=== PATIENT | female | born 1970 | race Asian ===

== ENCOUNTER → 2017-04-23 | Outpatient (CLI) | payer OTHER ==
[~2017-04-23] MED LIST: GADODIAMIDE PF 287 MG/ML 5 ML VIAL (for RAD MRI) IV PUSH ONE
--- NOTE | 2017-04-23 09:42 | RADRPT ---
EXAM DATE/TIME: 04/23/2017 07:42 [facility] COMPARISON: [facility], , March 01, 2016 INDICATIONS : Pancreatic mass. CONTRAST: 14 cc Omniscan (gadodiamide) IV MEDICAL HISTORY : None. SURGICAL HISTORY : None. ENCOUNTER: Subsequent ACUITY: 1 year PAIN SCORE: 0/10 LOCATION: Abdomen TECHNIQUE: Multiplanar, multisequence magnetic resonance imaging of the abdomen was performed without and with i ntravenous contrast. FINDINGS: LIVER: Normal size with normal signal intensity. At least 3 punctate areas of diminished signal intensity ar e identified in the left and right hepatic lobe following contrast administration characteristic of 2 -3 mm benign cysts. Portal vein is within normal limits. BILIARY: There is no intra- or extra-hepatic biliary ductal dilatation. Gallbladder contains no stones. SPLEEN: Within normal limits. PANCREAS: S. Siegelman prior exam, there is a rounded lesion at the tail of the pancreas. This previously measu red approximately 1.2 cm in diameter and currently measures approximately 8 mm. Decreased in size it is encouraging for benignity. Previously, there was some increased T2 signal intensity characteristic of a benign cyst. The T2 signal is diminished on the current exam which may represent a hemorrhagic or proteinaceous component. ADRENALS: Within normal limits. KIDNEYS: Normal size and signal intensity. There is no hydronephrosis or mass. OTHER: Aorta is nonaneurysmal. There is no lymphadenopathy. CONCLUSION: 1. Rounded lesion at the tail of the pancreas shows interval decrease in size previously measuring 1. 2 cm in diameter and now measuring approximately 0.8 cm. Diminished T2 signal when compared to prior may represent a hemorrhagic or proteinaceous component. Features are overtly benign. 2. Punctate, 2-3 mm parenchymal cysts in the left and right hepatic lobe as above, unchanged. 3. CBD is normal in caliber throughout its length. No obstruction. James Goetz MD on April 23, 2017 at 9:22 Board Certified Radiologist. This report was verified electronically.
== END ==
LOC: HRAD 06:56
PROVIDERS: ATTEND Internal Medicine Gastroenterology
DX: K86.9 Disease of pancreas, unspecified (principal)
CPT/HCPCS: 74183; A9579

== ENCOUNTER 2017-06-14 09:21 | Emergency (ER) | payer OTHER ==
[2017-06-14 09:30] VITALS: BP 129/81; PULSE 80; RESP 16; TEMP 97.5; O2SAT 100
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
[2017-06-14] MEDS ORDERED: IBUP1TAB7 PO (10:40)
[2017-06-14] MEDS ORDERED: ROBA500T PO (10:40)
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
[2017-06-14] MEDS ORDERED: METHOCARBAMOL 500 MG TAB PO ONE (10:45)
[2017-06-14] MEDS ORDERED: IBUPROFEN 800 MG TAB PO ONE (10:45)
== END 2017-06-14 11:10 | disposition home or self-care (01) ==
LOC: NEPK 09:21
DX: S16.1XXA Strain of muscle, fascia and tendon at neck level, initial encounter (principal); S80.02XA Contusion of left knee, initial encounter; V89.2XXA Person injured in unspecified motor-vehicle accident, traffic, initial encounter
CPT/HCPCS: 73564; 99283

== ENCOUNTER 2017-08-05 21:48 | Emergency (ER) | payer OTHER ==
[~2017-08-05] VITALS: Ht 170.2 cm; Wt 65.0 kg
[~2017-08-05 21:48] MED LIST changes: -GADODIAMIDE PF 287 MG/ML 5 ML VIAL (for RAD MRI) IV PUSH ONE; +IBUP1TAB7 PO; +ROBA500T PO
[2017-08-05 21:56] VITALS: BP 149/78; PULSE 79; RESP 20; TEMP 97.6; O2SAT 97
[2017-08-05] MEDS ORDERED: PRED20 PO (22:24)
[2017-08-05] MEDS ORDERED: DIPH25CA PO (22:24)
--- NOTE | 2017-08-05 22:29 | PD ---
HPI Chief Complaint: Allergic/Adverse Reaction Time Seen by Provider: 22:02 Travel History International Travel<30 days: No Contact w/Intl Traveler<30days: No Traveled to known affect area: No History of Present Illness HPI The patient is a 46 year old female who presents to the [facility] emergency department with a history of itchy rash that developed on her chest and neck on Sunday morning. The patient reports that the rash developed over the site where she had iodine soap placed to clean in preparation for an Infuse- a-Port placement. She reports that the Xkgkhg-p-Mlyg was placed on Sunday. She reports that she has tried taking Zyrtec and Claritin without any relief of the itching and redness. She denies having any chest pain, chest pressure, shortness of breath, abdominal pain, abdominal cramping, or diarrhea associated with this. The patient reports that she had the Htfnef-p-Myfu placed in preparation for starting on chemotherapy related to a right breast invasive ductal carcinoma. She plans to start the chemotherapy on August 08. The only other new medication that the patient recently started was [place] that she has been taking as needed since the Kzqxuk-z-Jouf was placed. On review of systems otherwise, the patient denies having any fevers, cough, congestion, neck pain, urinary symptoms, or neurologic symptoms. PFSH Past Medical History Narrative Medical The patient's past medical history is significant for her recent diagnosis of right breast cancer, history of hemorrhoids, migraine headaches, pancreatic cyst that is monitored. Cancer: Yes (BREAST) Immunizations Current: Yes Tetanus Vaccination: Unknown Influenza Vaccination: No ?: Not Past Surgical History Narrative Surgical The patient's past surgical history is significant for breast biopsy, IUD placement. Other Surgery: Yes (PORT PLACED 07-31-17) Social History Alcohol Use: No Tobacco Use: No Substance Use: No Allergies-Medications (Allergen,Severity, Reaction): Coded Allergies: No Known Allergies (Unverified Allergy, Unknown, 08/05/17) Reported Meds & Prescriptions Reported Meds & Active Scripts Active Prednisone 20 Mg Tab 20 Mg PO BID 5 Days Diphenhydramine (Diphenhydramine HCl) 25 Mg Cap 25 Mg PO Q6H 3 Days Robaxin (Methocarbamol) 500 Mg Tab 500 Mg PO QID PRN Review of Systems Except as stated in HPI: all other systems reviewed are Neg General / Constitutional: No: Fever Eyes: No: Visual changes HENT: No: Headaches Cardiovascular: No: Chest Pain or Discomfort Respiratory: No: Shortness of Breath Gastrointestinal: No: Abdominal Pain Genitourinary: No: Dysuria Musculoskeletal: No: Pain Skin: Positive Rash, Positive Itching, Positive Hives Neurologic: No: Weakness Psychiatric: No: Depression Endocrine: No: Polydipsia Hematologic/Lymphatic: No: Easy Bruising Physical Exam Narrative General: The patient is a well-developed well-nourished female in no acute distress. Head and Neck exam: Head is normocephalic atraumatic. Eyes: EOMI, pupils are equal round and reactive to light. Nose: Midline septum with pink mucous membranes Mouth: Dentition unremarkable. Moist mucus membranes. Posterior oropharynx is not erythematous. No tonsillar hypertrophy. Uvula midline. Airway patent. Neck: No palpable lymphadenopathy. No nuchal rigidity. No thyromegaly. Along the patient's anterior neck and upper chest the patient is noted to have erythema with urticaria that are coalescing. Cardiovascular: Regular rate and rhythm without murmurs, gallops, or rubs. No pulse deficit to the extremities on simultaneous auscultation and palpation of her radial artery. The patient is noted to have along the left upper chest a bandage in place after her Dpzbvl-h-Mmnn placement with ecchymosis noted superficially around this. No no other drainage noted. No signs of infection. Lungs: Clear to auscultation bilaterally. No wheezes, rhonchi, or rales. Abdomen: Soft, without tenderness to palpation in all 4 quadrants of the abdomen. No guarding, rebound, or rigidity. Normal bowel sounds are audible. No tenderness on palpation of McBurney's point. Negative Olvera sign. Extremities: No clubbing, cyanosis, or edema. 2+ pulses in all 4 extremities. No calf tenderness on palpation. Back: No spinous process tenderness to palpation. No costovertebral angle tenderness to palpation. Neurologic Exam: Grossly nonfocal. Skin Exam: Coalescing urticaria along the patient's anterior neck and upper chest. Intact skin that is warm and dry. Data Data Last Documented VS Vital Signs Date Time Temp Pulse Resp B/P (MAP) Pulse Ox O2 Delivery O2 Flow Rate FiO2 08/05/17 21:56 97.6 79 20 149/78 (101) 97 Orders Orders Diphenhydramine Inj (Benadryl Inj) (08/05/17 22:30) Prednisone (Deltasone) (08/05/17 22:30) [facility] Medical Decision Making Medical Screen Exam Complete: Yes Emergency Medical Condition: Yes Medical Record Reviewed: Yes Differential Diagnosis Urticaria due to a contact dermatitis, versus IgE mediated allergic reaction Narrative Course During the course of the patient's emergency department visit, the patient's history, examination, and differential diagnosis were reviewed with the patient. The patient was placed on a engineer exhauster with oximetry and frequent blood pressure monitoring. The patient has no other systemic findings on exam. The patient did have topical treatment with iodine prior to her Vjdeeg-q-Mixc being placed. I recommended that she add a note to her allergy list that she has a allergic reaction to iodine. The patient was initially provided Benadryl 25 mg IM, prednisone 20 mg p.o. The patient will be discharged home with a prescription for Benadryl and prednisone. She is instructed to notify her oncologist regarding this evaluation in the emergency department and new medications. The patient is resting comfortably and feels better, is alert and in no distress. The patient's results and examination findings were discussed with the patient. The repeat examination is unremarkable and benign. The history, exam, diagnostic testing, and current condition do not suggest any significant pathology to warrant further testing, continued ED treatment, admission, or surgical evaluation at this point. The vital signs have been stable. The patient does not have uncontrollable pain, intractable vomiting, or other significant symptoms. The patient's condition is stable and appropriate for discharge. The patient will pursue further outpatient evaluation with a primary care physician or other designated or consulting physician as indicated in the discharge instructions. The patient is instructed to report back to the emergency department immediately for reexamination in the mean time if he/ she develops any new or worsening signs or symptoms. The patient expressed understanding and was agreeable with this plan. Diagnosis Primary Impression: Urticaria Additional Impression: Contact dermatitis Qualified Codes: L23.5 - Allergic contact dermatitis due to other chemical products Referrals: Huey Rene MD 1 day Patient Instructions: Contact Dermatitis (ED), General Allergic Reaction (ED), General Instructions Med/Other Pt SpecificInfo: Prescription(s) given Scripts Prednisone (Prednisone) 20 Mg Tab 20 MG PO BID for 5 Days, #10 TAB 0 Refills Prov: Danielle Bedolla MD 08/05/17 Diphenhydramine (Diphenhydramine) 25 Mg Cap 25 MG PO Q6H for 3 Days, #12 CAP 0 Refills Prov: Danielle Bedolla MD 08/05/17 Disposition: 01 DISCHARGE HOME Condition: Stable Danielle Bedolla MD August 05, 2017 22:29
[2017-08-05] MEDS ORDERED: predniSONE 20 MG TAB PO ONE (22:30)
[2017-08-05] MEDS ORDERED: diphenhydrAMINE HCL 50 MG/ML VIAL IM ONE (22:30)
== END 2017-08-05 22:59 | disposition home or self-care (01) ==
LOC: NEPE 21:48
DX: L23.5 Allergic contact dermatitis due to other chemical products (principal)
CPT/HCPCS: 96372; 99283; J1200; J7512